=== PATIENT | female | born 1930 | race Caucasian/White ===

== ENCOUNTER → 2016-08-22 | Outpatient (CLI) | payer OTHER, MEDICAID ==
--- NOTE | 2016-08-22 16:49 | DX ---
Knee 4 or More Views Right History: RIGHT KNEE- AP, LATERAL, OBLIQUE. Comparison exam: May 09, 2016. Findings: Postsurgical changes involve the distal right femur and right knee, with lateral sideplate fixation of a transverse distal right femoral diaphyseal fracture and prior right total knee arthropl asty. A persistent transverse nondisplaced fracture line involves the distal right femoral diaphysis, with progressive new bone deposition at the site of fracture with compared to previous study. Howeve r, the fracture line persists. The knee arthroplasty appears intact. Impression: Status post ORIF transverse distal right femoral diaphyseal fracture. Progressive new art ne deposition at the fracture, although the fracture line persists.
== END ==
LOC: FIMAGING 11:01
PROVIDERS: ATTEND Family Medicine
DX: S72.491D Other fracture of lower end of right femur, subsequent encounter for closed fracture with routine healing (principal); Z96.651 Presence of right artificial knee joint

== ENCOUNTER 2017-08-03 12:38 | Inpatient (IN) | payer OTHER, MEDICAID ==
[2017-08-03 13:08] LABS: PLATELET COUNT 335 10^3/uL (150-400)
--- NOTE | 2017-08-03 13:08 | EDPHY ---
H & P Time Seen by Provider: 08/03/17 12:52 HPI/ROS: Chief complaint. Nausea vomiting HPI. 87-year-old female here by EMS with 3 day history of nausea and vomiting. She had been having left lower quadrant abdominal pain but she says she does not have it now. Nausea and vomiting but no diarrhea. She has been unable to keep fluids down. No chest pain or shortness of breath. Possibly she has had a fever. She lives remotely in [place]. Now generally weak and difficulty walking ROS Constitutional. no fever/chills; generalized weakness Eyes. no problems with vision ENT. no sore throat, no nasal drainage Cardiovascular. no chest pain Respiratory. no shortness of breath, no cough Abdominal. Resolved left lower quadrant abdominal pain with nausea and vomiting but no diarrhea . no problems urinating MS. no calf pain/swelling, no neck/back pain, no joint pain Skin. no rash Lymph. no swollen glands Neuro. no headache, no dizziness; difficulty walking secondary to weakness Past Medical/Surgical History: CVA, hypertension, spinal stenosis, hypothyroid, migraines, congestive heart failure, diverticulitis, GERD, depression/anxiety Social History: General Appearance: Alert well-developed female mild distress vital signs are noted Eyes: Pupils equal and round no pallor or injection. ENT, Mouth: Mucous membranes are dry. Respiratory: There are no retractions, lungs are clear to auscultation. Cardiovascular: Regular rate and rhythm. Gastrointestinal: Abdomen is soft and no longer tender in the left lower quadrant. Normal bowel sounds. No masses. Neurological: Awake and alert, sensory and motor exams grossly normal. Skin: Warm and dry, no rashes. Musculoskeletal: Neck is supple nontender. Extremities symmetrical, full range of motion. Psychiatric: Patient is oriented X 3, there is no agitation. Smoking Status: Never smoked Constitutional: Initial Vital Signs Temperature (C) 36.6 C 08/03/17 12:38 Heart Rate 95 08/03/17 12:38 Respiratory Rate 18 08/03/17 12:38 Blood Pressure 126/87 H 08/03/17 12:38 O2 Sat (%) 95 08/03/17 12:38 O2 Delivery Mode Room Air Allergies/Adverse Reactions: No Known Allergies Allergy (Unverified 02/21/16 17:35) Home Medications: Medication Instructions Recorded Citalopram [CeleXA 20 MG] 20 mg PO DAILY 02/21/16 Clopidogrel Bisulfate [Plavix (*)] 75 mg PO DAILY 02/21/16 Levothyroxine [Synthroid 125 mcg 125 mcg PO DAILY06 02/21/16 (*)] Pantoprazole Sodium [Protonix 40mg 40 mg PO DAILY 02/21/16 (*)] Valsartan [Diovan (*)] 80 mg PO DAILY 02/21/16 clonIDINE [Catapres (*)] 0.2 mg PO BID 02/21/16 Acetaminophen [Tylenol ES 500 mg 1,000 mg PO TID #0 tab 02/26/16 (*)] Ondansetron Odt [Zofran Odt 4 mg 4 mg PO Q4 PRN #0 tab 02/26/16 (*)] oxyCODONE IR [Oxycodone Ir (*)] 2.5 - 5 mg PO Q4HRS PRN #40 tab 02/26/16 traMADol [Ultram 50 mg (*)] 50 mg PO Q6HRS PRN #0 tab 02/26/16 Medical Decision Making - Diagnostics EKG Interpretation: EKG interpreted by me shows normal sinus rhythm with left axis deviation QRS otherwise normal there is no significant ST elevation or depression. No arrhythmia. Rate is 79 Imaging Results: Imaging Impressions Abdomen CT 08/03/17 13:19 Impression: 1. No acute findings in the abdomen or pelvis. 2. Diverticulosis without evidence of diverticulitis. 3. Severe multilevel degenerative change in the spine with multilevel moderate to severe spinal canal narrowing. 4. Left adnexal cyst, grossly stable in size since the comparison pelvic ultrasound, suboptimally characterized by CT. 5. Subacute minimally displaced posterolateral left 10th rib fracture with subacute nondisplaced right 9th and 10th rib fractures. 6.. Additional findings as above. Findings discussed with Dr. Wilmar Cooper on 08/03/2017 at 14:42. Chest X-Ray 08/03/17 13:20 Impression: Poor inspiration. No pneumonia. One-view chest x-ray shows no pneumonia CT abdomen and pelvis with IV contrast shows diverticulosis but not itis. No other acute findings Procedures: IV normal saline with initial target of 1 L. Zofran for nausea ED Course/Re-evaluation: We have had patient child care associate evaluating the patient. Her is also here. There is no family in state and the power of campaign consultant is out of state as well. Patient does have a urinary tract infection. She has been vomiting in and is somewhat dehydrated. She had had left lower quadrant abdominal pain and I considered diverticulitis but we do not find any acute findings on her abdominal CT I consulted discussed case with Dr. Mohamud, hospitalist, who agrees to the admission Patient is given IV Rocephin in the emergency department Differential Diagnosis: Failure to thrive. Dehydration. Lack of family support. Patient has UTI. - Data Points Laboratory Results: Laboratory Results 08/03/17 12:55 08/03/17 12:55 08/03/17 08/03/17 08/03/17 14:33 13:35 12:55 WBC RBC Hgb Hct MCV MCH MCHC RDW Plt Count MPV Neut % (Auto) Lymph % (Auto) Grayson % (Auto) Eos % (Auto) Baso % (Auto) Nucleat RBC Rel Count Absolute Neuts (auto) Absolute Lymphs (auto) Absolute Monos (auto) Absolute Eos (auto) Absolute Basos (auto) Absolute Nucleated RBC Immature Gran % Immature Gran # VBG Lactic Acid 1.8 mmol/L mmol/L (0.7-2.1) Sodium Potassium Chloride Carbon Dioxide Anion Gap BUN Creatinine Estimated GFR Glucose Calcium Troponin I 0.023 ng/mL ng/mL (0.000-0.034) Urine Color YELLOW Urine Appearance MODERATELY TURBID Urine pH 6.0 (5.0-7.5) Ur Specific Buckley 1.017 (1.002-1.030) Urine Protein 2+ H (NEGATIVE) Urine Ketones NEGATIVE (NEGATIVE) Urine Blood 2+ H (NEGATIVE) Urine Nitrate NEGATIVE (NEGATIVE) Urine Bilirubin NEGATIVE (NEGATIVE) Urine Urobilinogen NEGATIVE EU EU (0.2-1.0) Ur Leukocyte Esterase 3+ H (NEGATIVE) Urine RBC 5-10 /hpf H /hpf (0-3) Urine WBC 50-182 /hpf H /hpf (0-3) Ur Epithelial Cells TRACE /lpf /lpf (NONE-1+) Urine Bacteria 4+ /hpf H /hpf (NONE SEEN) Hyaline Casts 5-15 /lpf /lpf (0-1) Urine Mucus 2+ /lpf H /lpf (NONE-1+) Urine Glucose NEGATIVE (NEGATIVE) 08/03/17 08/03/17 12:55 12:55 WBC 8.18 10^3/uL 10^3/uL (3.80-9.50) RBC 5.10 10^6/uL 10^6/uL (4.18-5.33) Hgb 14.7 g/dL g/dL (12.6-16.3) Hct 42.7 % % (38.0-47.0) MCV 83.7 fL fL (81.5-99.8) MCH 28.8 pg pg (27.9-34.1) MCHC 34.4 g/dL g/dL (32.4-36.7) RDW 14.7 % % (11.5-15.2) Plt Count 335 10^3/uL 10^3/uL (150-400) MPV 9.2 fL fL (8.7-11.7) Neut % (Auto) 72.2 % % (39.3-74.2) Lymph % (Auto) 16.9 % % (15.0-45.0) Grayson % (Auto) 9.3 % % (4.5-13.0) Eos % (Auto) 0.5 % L % (0.6-7.6) Baso % (Auto) 0.6 % % (0.3-1.7) Nucleat RBC Rel Count 0.0 % % (0.0-0.2) Absolute Neuts (auto) 5.91 10^3/uL 10^3/uL (1.70-6.50) Absolute Lymphs (auto) 1.38 10^3/uL 10^3/uL (1.00-3.00) Absolute Monos (auto) 0.76 10^3/uL 10^3/uL (0.30-0.80) Absolute Eos (auto) 0.04 10^3/uL 10^3/uL (0.03-0.40) Absolute Basos (auto) 0.05 10^3/uL 10^3/uL (0.02-0.10) Absolute Nucleated RBC 0.00 10^3/uL 10^3/uL (0-0.01) Immature Gran % 0.5 % % (0.0-1.1) Immature Gran # 0.04 10^3/uL 10^3/uL (0.00-0.10) VBG Lactic Acid Sodium 133 mEq/L L mEq/L (135-145) Potassium 4.4 mEq/L mEq/L (3.5-5.2) Chloride 100 mEq/L mEq/L (97-110) Carbon Dioxide 18 mEq/l L mEq/l (22-31) Anion Gap 15 mEq/L mEq/L (8-16) BUN 20 mg/dL mg/dL (7-23) Creatinine 0.8 mg/dL mg/dL (0.6-1.0) Estimated GFR > 60 Glucose 118 mg/dL H mg/dL (70-100) Calcium 10.1 mg/dL mg/dL (8.5-10.4) Troponin I Urine Color Urine Appearance Urine pH Ur Specific Buckley Urine Protein Urine Ketones Urine Blood Urine Nitrate Urine Bilirubin Urine Urobilinogen Ur Leukocyte Esterase Urine RBC Urine WBC Ur Epithelial Cells Urine Bacteria Hyaline Casts Urine Mucus Urine Glucose Medications Given: Discontinued Medications Sodium Chloride (Ns) 1,000 mls @ 0 mls/hr IV EDNOW ONE; Wide Open PRN Reason: Protocol Stop: 08/03/17 13:19 Last Admin: 08/03/17 14:05 Dose: 1,000 mls Ondansetron HCl (Zofran) 4 mg IVP EDNOW ONE Stop: 08/03/17 13:19 Last Admin: 08/03/17 14:06 Dose: 4 mg Departure - Departure Disposition: [facility] Inpatient Acute Clinical Impression: Urinary tract infection Qualifiers: Urinary tract infection type: site unspecified Hematuria presence: without hematuria Qualified Code(s): N39.0 - Urinary tract infection, site not specified Condition: Fair Referrals: Patient,NotPresent [Primary Care Provider] - As per Instructions
[2017-08-03] MEDS ORDERED: NS 1,000 ML IV ONE (13:18)
[2017-08-03] MEDS ORDERED: ONDANSETRON 4 MG/2 ML VIAL IVP ONE (13:18)
[2017-08-03] MEDS ORDERED: IOPAMIDOL (ISOVUE-300) 100 ML BTL ONE (13:31)
--- NOTE | 2017-08-03 13:40 | CPEKG ---
Heart Rate: 79 RR Interval: 759 P-R Interval: 204 QRSD Interval: 74 QT Interval: 400 QTC Interval: 459 P Cable: 16 QRS Cable: -8 T Wave Cable: -8 EKG Severity - BORDERLINE ECG - EKG Impression: SINUS RHYTHM EKG Impression: ATRIAL PREMATURE COMPLEX EKG Impression: BORDERLINE R WAVE PROGRESSION, ANTERIOR LEADS EKG Impression: BORDERLINE T ABNORMALITIES, INFERIOR LEADS Electronically Signed By: Wilmar Cooper 03-Aug-2017 15:19:04
[2017-08-03] MEDS ORDERED: cefTRIAXone 1 GM in STERILE WATER INJ 10 ML IV ONE (15:12)
--- NOTE | 2017-08-03 16:20 | ASMTLACE ---
SOY Acuity / Level of Answers: Yes Care: Did the patient have an inpatient admission? # of Emergency department Answers: 1-2 visits in the last 6 months Score: 4 Date Signed: 08/03/2017 04:20 PM Electronically Signed By:Tania Metz RN
--- NOTE | 2017-08-03 16:37 | ASMTCMCOM ---
CM Note CM Note Notes: Patient presents to the ER via EMS with c/o N/V. Her presents to the ER as well at this time and they will both be admitted. Patient and her live in [place] and although they are both followed by [facility], neither have local family support. I have spoken with the patient's daughter Renate who live is [place]. Renate tells me she is going to make arrangements to get out here as soon as possible. She also informs me that the patient and her have been "considering" getting into a more supportive environment, but at this point have not followed through with this. The patient's dog daycare provider at [facility] is Kianna Cox . Gricel Perez is patient's dog daycare provider at [facility] . I have left her a message regarding patient's admission CM to follow with discharge planning and care coordination Date Signed: 08/03/2017 04:36 PM Electronically Signed By:Tania Metz RN
[2017-08-03] MEDS ORDERED: ONDANSETRON 4 MG/2 ML VIAL IVP PRN (19:01)
[2017-08-03] MEDS ORDERED: ACETAMINOPHEN 325 MG TAB PO PRN (19:01)
[2017-08-03] MEDS ORDERED: ONDANSETRON DISINTEGRATING 4 MG TAB PO PRN (19:01)
[2017-08-03] MEDS ORDERED: ALBUTEROL 60 PUFFS/8 GM MDI IH PRN (19:03)
[2017-08-03] MEDS ORDERED: NS 1,000 ML IV SCH (19:15)
--- NOTE | 2017-08-03 20:41 | GHP ---
[f rep st] HISTORY AND PHYSICAL DATE OF ADMISSION: 08/03/2017 HISTORY OF PRESENT ILLNESS: The patient is an 87-year-old female, with a history of hypertension and reactive airway disease, who along with her called 911 today. She complained of left lower quadrant pain. She has had some vomiting. She has had no diarrhea. It is uncertain when her last b owel movement was. She denies chest pain, shortness of breath, fever, chills, urgency, frequency, dy suria. She does not have a history of chest pain. When I see the patient, she is wondering why she is here in the hospital. There are reports that when she and her were found by EMS, they were in bed together, covered in urine and perhaps stool. They are clean when I see them. The patient is alert and conversant, b ut I am not convinced she has a complete understanding of things that are going. She does acknowledg e high blood pressure that she takes medicines for but really cannot say much thereafter. I admitted her to the hospital earlier this evening and he made it fairly clear that he thoug ht they were unable to take care of themselves in their remote home in the town of [place] [facility]. REVIEW OF SYSTEMS: A complete 10-point review of systems was conducted and negative except as noted in the HPI. PAST MEDICAL HISTORY: 1. Hypertension. 2. Reactive airway disease. 3. TIA. 4. History of diverticulitis. 5. Hypothyroidism. 6. Fall, she was admitted here in February 2016 with a fall and a periprosthetic fracture. 7. She has had a knee replacement. ALLERGIES: No known drug allergies. HOME MEDICATIONS: 1. Albuterol. 2. Aspirin. 3. Citalopram. 4. Clonidine. 5. Clopidogrel. 6. Diclofenac gel. 7. Levothyroxine. 8. Mirtazapine. 9. Oxybutynin. 10. Pantoprazole. 11. Tamsulosin. 12. Tramadol. 13. Triamcinolone cream. 14. Valsartan. SOCIAL HISTORY: Lives in [place] with her . No tobacco or alcohol. FAMILY HISTORY: Parents are . PHYSICAL EXAMINATION: VITAL SIGNS: Temperature 36.6, blood pressure 126/87, pulse 95, breathing 18 times a minute, 95% on room air. GENERAL: No acute distress. Conversant. HEENT: Landy mistry. Oropharynx clear. Mucous membranes moist. NECK: Supple, without lymphadenopathy or JVD. LUNGS : Clear to auscultation bilaterally. HEART: S1, S2. ABDOMEN: Soft, nontender, nondistended. The re is no left lower quadrant tenderness. No rebound or guarding. There is no mass. LOWER EXTREMITI ES: No edema. Calves are nontender. SKIN: Without rash. NEUROLOGIC: Nonfocal. LABORATORY DATA: White count 8.2, hematocrit 42.7, platelets 335,000. Venous lactate is 1.8. Sodiu m 133, potassium 4.4, chloride 100, bicarb 18, BUN 20, creatinine 0.8, glucose 118. Troponin 0.23. She has history of undetectable troponins in the past, although it has been 5 years. UA shows 5-10 r ed cells, 50-182 white cells with bacteria. Chest x-ray, interpreted by me, shows a lordotic shot bu t otherwise no pneumonia. Abdominal CT shows no diverticulitis. No comment on constipation. There is also degenerative change in the spine, stable adnexal cyst, subacute minimally displaced posterola teral left 10th rib fracture. She has an EKG interpreted by me, that shows sinus at 79 with normal a xis and intervals. There is a T-wave inversion in lead 3 which is unchanged from prior. Otherwise, there are no ST or T-wave changes. I have discussed the case with Dr. Wilmar Cooper. ASSESSMENT/PLAN: An 87-year-old female with urinary tract infection and likely failure to thrive. 1. Urinary tract infection. She has pyuria. She has noticed symptoms, uncertain as to her ability to recall. She received ceftriaxone in the emergency department. Urine cultures have been sent. Wi ll follow. Will continue ceftriaxone. 2. Indeterminate troponin. She has an unchanged EKG. Denies chest symptoms. I will follow her on telemetry and repeat an EKG. 3. Failure to thrive. The patient has an old healed rib fracture indicative of likely prior fall an d it sounds like there is a situation of potentially unsafe living in this couple in their ninth dec[place] Social Work has been consulted. 4. Hypertension. Continue her medications. 5. Modestly elevated creatinine. She has greater than her baseline creatinine. Will hydrate her an d follow. 6. Hyponatremia. It is mild and essentially at her baseline. Will follow. 7. Low bicarb. This may be ketosis from starvation. Will follow. I do not suspect a serious metab olic acidosis cause. CODE: Full. DISPOSITION: Inpatient. /[id number]/MODL
[2017-08-03] MEDS: TAMSULOSIN HCL 0.4 MG CAP PO SCH (21:52)
[2017-08-03] MEDS: MIRTAZAPINE 15 MG TAB PO SCH (21:52)
[2017-08-03] MEDS: OXYBUTYNIN CHLORIDE 5 MG TAB PO SCH (21:55)
[2017-08-03] MEDS: DICLOFENAC SODIUM 1% 100 GM GEL TP SCH (22:26)
[2017-08-04] MEDS: LEVOTHYROXINE 125 MCG TAB PO SCH ×2 (06:26→06:31)
[2017-08-04] MEDS: cefTRIAXone 1 GM in STERILE WATER INJ 10 ML IV SCH (08:20)
[2017-08-04] MEDS: PANTOPRAZOLE SODIUM 40 MG TAB PO SCH (08:20)
[2017-08-04] MEDS: ASPIRIN 81 MG CHEWABLE TAB PO SCH (08:20)
[2017-08-04] MEDS: VALSARTAN 80 MG TAB PO SCH (08:20)
[2017-08-04] MEDS: OXYBUTYNIN CHLORIDE 5 MG TAB PO SCH (08:20)
[2017-08-04] MEDS: CLOPIDOGREL BISULFATE 75 MG TAB PO SCH (08:20)
[2017-08-04] MEDS: ENOXAPARIN 40 MG/0.4 ML SYR SC SCH ×2 (08:20→10:31)
[2017-08-04] MEDS: CITALOPRAM 20 MG TAB PO SCH (08:20)
[2017-08-04] MEDS: DICLOFENAC SODIUM 1% 100 GM GEL TP SCH ×2 (08:21→20:21)
[2017-08-04] MEDS: TRIAMCINOLONE 0.1% 15 GM CRTUBE TP SCH (08:21)
--- NOTE | 2017-08-04 10:12 | PDMN ---
Medical Necessity Medical necessity: est los>2mn for UTI, indeterminate troponin, elevated creatinine, hyponatremia, low bicarb, and FTT, reportedly covered in urine and stool at home; admit for IV abx, tele, IVF, monitor labs, PT/OT; comorbid advanced age, htn, RAD, hx TIA, and diverticulitis; per order and H&P 08/03/17
--- NOTE | 2017-08-04 12:07 | HOSPPROG ---
Hospitalist Progress Note Assessment/Plan: UTI - cont ceftriaxone, UCx with GNR's, await final report and sensitivities. No BCx's on admission, defer at this point as she is stable, had normal lactate. Acute encephalopathy - likely due to above. Cog eval planned. AHRF - 3 LPM. CXR neg for PNA, poor inspiratory effort. Suspect atelectasis, encephalopathy playing a role. No tachycardia or pleuritic symptoms. Hyponatremia - resolved with IVF's Metabolic acidosis - likely starvation ketosis, resolved with IVF's Failure to thrive - living in [place] with , who is also hospitalized. May require placement. CM involved. DVT PPLX - high risk, Lovenox DNR Dispo - cont inpt, needs PT/OT when able to cooperate. Subjective: Pt is comfortable at rest, yells out with any attempt to move her. She awakens to verbal stimuli, but does not interact or answer questions. Objective: Vital Signs Temp Pulse Resp BP Pulse Ox 36.6 C 76 20 127/48 H 98 08/04/17 08:00 08/04/17 08:00 08/04/17 08:00 08/04/17 08:00 08/04/17 08:00 Laboratory Results 08/04/17 05:03 08/03/17 08/04/17 08/05/17 05:59 05:59 05:59 Intake Total 1000 Balance 1000 - Physical Exam Constitutional: no apparent distress Eyes: PERRL Ears, Nose, Mouth, Throat: moist mucous membranes Cardiovascular: regular rate and rhythym Respiratory: no respiratory distress Gastrointestinal: normoactive bowel sounds, soft, non-tender abdomen Skin: warm Musculoskeletal: generalized weakness Psychiatric: encephalopathic ICD10 Worksheet Patient Problems: Problems Problem Status Onset Urinary tract infection Acute Supracondylar fracture of femur Acute Transient ischemic attack Acute
[2017-08-04] MEDS: traMADol 50 MG TAB PO PRN ×2 (13:20→20:19)
--- NOTE | 2017-08-04 16:07 | ASMTCMCOM ---
CM Note CM Note Notes: Pt is in the hospital after her and her , who is also a pt, called 911. She and her live in [place] in a home alone, she is wc/bed bound at baseline and has some dementia. She and her do have case workers and a dtr that lives out of state who are trying to assist pt and to potentially get 24hr care or into [place]. Please read the ED CM note. Pt's will go to [facility], pt should go as well but CM was told they should not be in the same room. PT recommends SNF, OT/LEAD PRESSMAN is pending DC Plan: SNF Date Signed: 08/04/2017 04:07 PM Electronically Signed By:Hodan Reinoso RN
[2017-08-04] MEDS: MIRTAZAPINE 15 MG TAB PO SCH ×2 (20:19→22:02)
[2017-08-04] MEDS: TAMSULOSIN HCL 0.4 MG CAP PO SCH ×2 (20:19→22:02)
[2017-08-05] MEDS: LEVOTHYROXINE 125 MCG TAB PO SCH ×2 (04:41→09:10)
[2017-08-05] MEDS: cefTRIAXone 1 GM in STERILE WATER INJ 10 ML IV SCH (08:51)
[2017-08-05] MEDS: ENOXAPARIN 40 MG/0.4 ML SYR SC SCH (08:53)
[2017-08-05] MEDS: VALSARTAN 80 MG TAB PO SCH (09:02)
[2017-08-05] MEDS: CITALOPRAM 20 MG TAB PO SCH (09:07)
[2017-08-05] MEDS: ASPIRIN 81 MG CHEWABLE TAB PO SCH (09:07)
[2017-08-05] MEDS: PANTOPRAZOLE SODIUM 40 MG TAB PO SCH (09:07)
[2017-08-05] MEDS: CLOPIDOGREL BISULFATE 75 MG TAB PO SCH (09:08)
--- NOTE | 2017-08-05 10:39 | HOSPPROG ---
Hospitalist Progress Note Assessment/Plan: UTI - Cooney-sensitive e coli on UCx. No BCx's on admission, defer at this point as she is stable, had normal lactate. Acute encephalopathy - likely due to above. Cont cognitive assessments. May improve with hydration, tx of infection. AHRF - 3 LPM. CXR neg for PNA, poor inspiratory effort. Suspect atelectasis, encephalopathy playing a role. No tachycardia or pleuritic symptoms. Hyponatremia - resolved with IVF's Metabolic acidosis - likely starvation ketosis, resolved with IVF's Failure to thrive - living in [place] with , who is also hospitalized. May require placement. CM involved. DVT PPLX - high risk, Lovenox DNR Dispo - cont inpt, needs PT/OT when able to cooperate. Anticipate will need SNF. Subjective: Pt is somnolent, sleepy, but awakens to verbal stimuli, opens eyes and answers questions. Denies pain. No fevers. Taking some po. Objective: Vital Signs Temp Pulse Resp BP Pulse Ox 36.3 C 64 16 130/51 H 98 08/05/17 07:51 08/05/17 07:51 08/05/17 07:51 08/05/17 07:51 08/05/17 07:51 Laboratory Results 08/04/17 05:03 08/04/17 08/05/17 08/06/17 05:59 05:59 05:59 Intake Total 1000 654 Output Total 550 Balance 1000 104 - Physical Exam Constitutional: no apparent distress Eyes: PERRL Ears, Nose, Mouth, Throat: moist mucous membranes Cardiovascular: regular rate and rhythym Respiratory: no respiratory distress, clear to auscultation Gastrointestinal: normoactive bowel sounds, soft, non-tender abdomen Skin: warm Musculoskeletal: full muscle strength Neurologic: AAOx3 Psychiatric: interacting appropriately ICD10 Worksheet Patient Problems: Problems Problem Status Onset Urinary tract infection Acute Supracondylar fracture of femur Acute Transient ischemic attack Acute
[2017-08-05] MEDS: TRIAMCINOLONE 0.1% 15 GM CRTUBE TP SCH (11:16)
[2017-08-05] MEDS: DICLOFENAC SODIUM 1% 100 GM GEL TP SCH ×2 (11:16→23:32)
[2017-08-05] MEDS ORDERED: NS 500 ML IV ONE (13:56)
[2017-08-05] MEDS: NS 1,000 ML IV SCH (17:46)
[2017-08-05] MEDS ORDERED: HALOPERIDOL LACT 5 MG/ML INJ IM ONE ×2 (19:48→21:30)
[2017-08-05] MEDS ORDERED: HALOPERIDOL LACT 5 MG/ML INJ ONE (21:20)
[2017-08-05] MEDS: MIRTAZAPINE 15 MG TAB PO SCH (23:25)
[2017-08-05] MEDS: TAMSULOSIN HCL 0.4 MG CAP PO SCH (23:25)
[2017-08-06] MEDS: LEVOTHYROXINE 125 MCG TAB PO SCH ×2 (04:49→05:19)
[2017-08-06] MEDS ORDERED: HALOPERIDOL 0.5 MG TAB PO PRN (09:30)
[2017-08-06] MEDS ORDERED: NS 500 ML IV ONE (10:13)
--- NOTE | 2017-08-06 10:15 | HOSPPROG ---
Hospitalist Progress Note Assessment/Plan: UTI - E coli on UCx, sensitive to cephalosporin. No BCx's on admission, defer at this point as she is stable, had normal lactate. -change to oral keflex Acute encephalopathy with agitation overnight - Query underlying dementia. More alert today, though required IM Haldol overnight for agitation. -prn zyprexa for agitation -cog eval Urinary retention - nl Creatinine, straight cath'd for 800 cc's overnight. -d/c TCA, which could be contributory -bladder scan / prn straight cath AHRF - Resolved, was likely atelectatic, now on room air. Hyponatremia - resolved with IVF's Metabolic acidosis - likely starvation ketosis, resolved with IVF's Azotemia - likely pre-renal, still a bit dry -NS bolus today, cont gentle IVF's Failure to thrive - living in [place] with , who is also hospitalized. Needs SNF DVT PPLX - high risk, Lovenox DNR Dispo - cont inpt, PT/OT. Plan to d/c to SNF where is. Subjective: Pt more awake, alert, up in chair, eating. Denies pain. Speech is a bit garbled, she is confused. No fevers. +urinary retention overnight. Objective: Vital Signs Temp Pulse Resp BP Pulse Ox 37.1 C 91 18 168/77 H 96 08/06/17 03:25 08/06/17 03:25 08/06/17 03:25 08/06/17 03:25 08/06/17 03:25 Laboratory Results 08/06/17 05:15 08/05/17 08/06/17 08/07/17 05:59 05:59 05:59 Intake Total 654 1260 Output Total 550 800 Balance 104 460 - Physical Exam Constitutional: no apparent distress Eyes: PERRL Ears, Nose, Mouth, Throat: moist mucous membranes Cardiovascular: regular rate and rhythym Respiratory: no respiratory distress, clear to auscultation Gastrointestinal: normoactive bowel sounds, soft, non-tender abdomen Skin: warm Musculoskeletal: full muscle strength Neurologic: AAOx3 Psychiatric: agitated, poor memory ICD10 Worksheet Patient Problems: Problems Problem Status Onset Urinary tract infection Acute Supracondylar fracture of femur Acute Transient ischemic attack Acute
[2017-08-06] MEDS: CLOPIDOGREL BISULFATE 75 MG TAB PO SCH (10:18)
[2017-08-06] MEDS: ASPIRIN 81 MG CHEWABLE TAB PO SCH (10:18)
[2017-08-06] MEDS: CITALOPRAM 20 MG TAB PO SCH (10:18)
[2017-08-06] MEDS: CEPHALEXIN 500 MG CAP PO SCH ×2 (10:18→16:58)
[2017-08-06] MEDS: PANTOPRAZOLE SODIUM 40 MG TAB PO SCH (10:18)
[2017-08-06] MEDS: VALSARTAN 80 MG TAB PO SCH (10:18)
[2017-08-06] MEDS: OLANZapine DISINTEGR 5 MG TAB PO PRN ×2 (10:32→11:40)
[2017-08-06] MEDS: ENOXAPARIN 40 MG/0.4 ML SYR SC SCH (11:00)
[2017-08-06] MEDS: cefTRIAXone 1 GM in STERILE WATER INJ 10 ML IV SCH (11:01)
[2017-08-06] MEDS: DICLOFENAC SODIUM 1% 100 GM GEL TP SCH ×2 (12:00→20:37)
[2017-08-06] MEDS ORDERED: cefTRIAXone 1 GM in STERILE WATER INJ 10 ML IV SCH (17:00)
[2017-08-06] MEDS: TRIAMCINOLONE 0.1% 15 GM CRTUBE TP SCH (18:28)
[2017-08-06] MEDS: TAMSULOSIN HCL 0.4 MG CAP PO SCH (19:55)
[2017-08-07] MEDS: LEVOTHYROXINE 125 MCG TAB PO SCH (04:54)
[2017-08-07] MEDS: NS 1,000 ML IV SCH (07:58)
[2017-08-07 08:06] VITALS: TEMP 97.9
[2017-08-07] MEDS ORDERED: CEPHALEXIN 500 MG CAP PO SCH (09:00)
--- NOTE | 2017-08-07 09:06 | PDIAF ---
- Diagnosis Diagnosis: UTI, dementia Code Status: Do Not Resuscitate - Medication Management Discharge Medications: Medications to Continue on Transfer Citalopram [CeleXA 20 MG] 20 mg PO DAILY 02/21/16 [Last Taken Unknown] Clopidogrel Bisulfate [Plavix (*)] 75 mg PO DAILY 02/21/16 [Last Taken Unknown] Levothyroxine [Synthroid 125 mcg (*)] 125 mcg PO DAILY06 02/21/16 [Last Taken Unknown] Pantoprazole Sodium [Protonix 40mg (*)] 40 mg PO DAILY 02/21/16 [Last Taken Unknown] Valsartan [Diovan (*)] 80 mg PO DAILY 02/21/16 [Last Taken Unknown] clonIDINE [Catapres (*)] 0.2 mg PO BID 02/21/16 [Last Taken Unknown] Albuterol [Proventil Inhaler HFA (*)] 2 puffs IH Q4 PRN 08/03/17 [Last Taken Unknown] Aspirin [Aspirin 81mg (*)] 81 mg PO DAILY 08/03/17 [Last Taken Unknown] Diclofenac Sodium 1% [Voltaren Gel (*)] 1 hemal TP BID 08/03/17 [Last Taken Unknown] Tamsulosin HCl [Flomax 0.4 MG (*)] 0.4 mg PO HS 08/03/17 [Last Taken Unknown] Triamcinolone 0.1% [Triamcinolone 0.1% Cream (*)] 1 hemal TP DAILY 08/03/17 [Last Taken Unknown] Acetaminophen [Tylenol 325mg (*)] 650 mg PO Q4HRS PRN tab 08/07/17 [Last Taken Unknown] Cephalexin [Keflex (*)] 500 mg PO BID #8 cap 08/07/17 [Last Taken Unknown] OLANZapine DISINTEGR [ZyPREXA ZYDIS (*)] 2.5 mg PO HS PRN #30 tab 08/07/17 [ Last Taken Unknown] Discharge Medications: Refer to the Discharge Home Medication list for PRN reason. PICC Care - Routine: N/A - Orders Services needed: Registered Nurse, Certified Threading Machine Feeder Automatic, Master Hog Stomach Preparer , Physical Therapy, Occupational Therapy, Speech Language Pathologist Isolation Type: None Diet Recommendation: sodium restricted Diet Texture: Dysphagia 3 - Advanced - Moist, Bite-Size, Ramos Thick Liquids, Meds Whole in Puree Oates: Yes Additional: Oates placed for ongoing retention, stopped tricyclic. May remove oates in 2-3 days for voiding trial. F/U with Urology if ongoing retention. - Follow Up Care Current Providers and Referrals: Patient,NotPresent [Unknown] - As per Instructions
[2017-08-07] MEDS: CITALOPRAM 20 MG TAB PO SCH (09:29)
[2017-08-07] MEDS: ASPIRIN 81 MG CHEWABLE TAB PO SCH (09:29)
[2017-08-07] MEDS: CLOPIDOGREL BISULFATE 75 MG TAB PO SCH (09:29)
[2017-08-07] MEDS: PANTOPRAZOLE SODIUM 40 MG TAB PO SCH (09:30)
[2017-08-07] MEDS: VALSARTAN 80 MG TAB PO SCH (09:30)
[2017-08-07] MEDS: DICLOFENAC SODIUM 1% 100 GM GEL TP SCH (09:30)
[2017-08-07] MEDS: ENOXAPARIN 40 MG/0.4 ML SYR SC SCH (09:30)
[2017-08-07] MEDS: TRIAMCINOLONE 0.1% 15 GM CRTUBE TP SCH (09:41)
[2017-08-07 11:07] VITALS: BP 135/68; PULSE 96; RESP 15; O2SAT 98
--- NOTE | 2017-08-07 14:37 | ASDISCHSUM ---
Discharge Information Plan Status:SNF Medically Cleared to Leave:08/06/2017 Discharge Date:08/07/2017 12:49 PM D/C Disposition:Jail Facility ADT D/C Disposition:Jail Facility Projected Discharge Date:08/07/2017 11:00 AM Transportation at D/C:ALS/BLS Discharge Delay Reason: Follow-Up Date:08/07/2017 11:00 AM Discharge Slot: Final Diagnosis:UTI, FTT Placement Information Referral Type:*Residential/SNF Referral ID:[id number] Provider Name:[facility] Address 1:[address] Address 2: City:[place] Selection Factors: State:[place] Patient Contact Information Contact Name:ERIKA Relationship: Address:[address] [place] [address] [facility] [employer] Work Phone: City:[place] Alternate Phone: State/[facility] Code:[place] [address] Email: Financial Information Financial Class: Primary Plan Desc:MEDICARE INPATIENT Primary Plan Number:[id number] Secondary Plan Desc:MEDICA[place] Secondary Plan Number:[id number] Assessment Information LACE LACE Acuity / Level of Answers: Yes Care: Did the patient have an inpatient admission? # of Emergency department Answers: 1-2 visits in the last 6 months Score: 4 Date Signed: 08/03/2017 04:20 PM Electronically Signed By:Tania Metz RN [facility] CM Progress Note CM Note CM Note Notes: Patient presents to the ER via EMS with c/o N/V. Her presents to the ER as well at this time and they will both be admitted. Patient and her live in [place] and although they are both followed by [facility], neither have local family support. I have spoken with the patient's daughter Renate who live is [place]. Renate tells me she is going to make arrangements to get out here as soon as possible. She also informs me that the patient and her have been "considering" getting into a more supportive environment, but at this point have not followed through with this. The patient's managed care director at [facility] is Kianna Cox . Gricel Perez is patient's managed care director at [facility] . I have left her a message regarding patient's admission CM to follow with discharge planning and care coordination Date Signed: 08/03/2017 04:36 PM Electronically Signed By:Tania Metz RN [facility] CM Progress Note CM Note CM Note Notes: Pt is in the hospital after her and her , who is also a pt, called 911. She and her live in [place] in a home alone, she is wc/bed bound at baseline and has some dementia. She and her do have case workers and a dtr that lives out of state who are trying to assist pt and to potentially get 24hr care or into AL. Please read the ED CM note. Pt's will go to [facility], pt should go as well but CM was told they should not be in the same room. 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 Answers: Yes Patient to Obtain Answers: Other Notes: [facility] Medications Transportation Arranged Answers: [facility] will Pick (Date 08/07/2017 01:00 PM & Time) EMTALA Complete Answers: No Case Management Transport Answers: Yes Form Complete Faxed Final Orders Answers: Yes Notes: [facility] Agency/Facility Transfer Answers: Yes Report Printed & Faxed to Receiving Agency Discharge Comments Notes: Pt is being discharged today to [facility]. CM met w/ pt for dispo planning. Pt is agreeable to d/c plans. Pt will be sharing a room w/ her which is also at rehab at [facility]. CM sent d/c orders. CM provided HAYLIE Garcia w/ phone number to give report. CM spoke w/ Gricel (P#: [phone]), HC[employer] worker from [facility] and provided updates. CM completed PCS form and a copy is in pts chart. CM available for changes. Plan: [facility] Date Signed: 08/07/2017 11:46 AM Electronically Signed By:TOMAS Ray Intervention Information Intervention Type:*IM-Signed Date of Service:08/07/2017 11:49 AM Patient Type:Inpatient Staff Member:Jacqui Mcintyre Hours: Discipline: Severity: Comment:
--- NOTE | 2017-08-07 23:41 | GDS ---
[f rep st] DISCHARGE SUMMARY DISCHARGE DIAGNOSES: 1. Urinary tract infection secondary to Escherichia coli. 2. Acute encephalopathy, resolved. 3. Suspected dementia. 4. Urinary retention, discharged with an indwelling Foster. 5. Acute hypoxemic respiratory failure, resolved. 6. Hyponatremia, resolved. 7. Metabolic acidosis, resolved. 8. Failure to thrive. CONSULTANTS: None. HISTORY: For details, please see the History and Physical dated August 03, 2017. In brief, the sunshine ramirez is an 87-year-old female who has been living independently with her in the [facility] and presented to the emergency department when her called 911 due to her com plaining of abdominal pain with vomiting. When EMS arrived, she and her were found in bed to gether covered in urine and feces. It appeared that they were not taking care of themselves. They w ere both admitted to the hospital on the same day. HOSPITAL COURSE: Patient was admitted to med/surg unit. She was found to have a urinary tract infec tion and indeed her urine culture grew E coli which was sensitive to cephalosporins. She was treated with 3 days of IV ceftriaxone and transitioned to oral Keflex. She was initially quite encephalopat hic, though her mentation improved with IV hydration and treatment of her infection. She did not hav e evidence of sepsis on arrival. Her hyponatremia and metabolic acidosis resolved with IV hydration. It is suspected that she has underlying dementia. In addition, she developed urinary retention and required multiple straight caths for postvoid residuals of 400-800 mL. A Foster catheter was placed and this will remain in place as she transferred to [facility] facility. There, they can remove the Foster in 2-3 days for a voiding trial. If she requires Foster replacement, would recommend [facility] followup. In addition, she was started on low-dose Zyprexa for some agitation and she seemed to respond well to this. DISPOSITION: Patient is discharged to [facility] facility in stable condition. FOLLOWUP: Patient is to follow up with her primary care physician in 1-2 weeks. DISCHARGE MEDICATIONS: Please see [facility] for completed outpatient medication list. New medication s on discharge include Keflex 500 mg p.o. twice daily #8 no refills; Zyprexa 2.5 mg p.o. q.h.s. p.r.n . #30 no refills; and Tylenol 650 mg p.o. q.4 hours p.r.n. She will continue all other outpatient me dications as previously prescribed including Protonix 40 mg daily, Synthroid 125 mcg daily, clonidine 0.2 mg p.o. b.i.d., Plavix 75 mg p.o. daily, Celexa 20 mg p.o. daily, valsartan 80 mg p.o. daily, di clofenac gel b.i.d., aspirin 81 mg p.o. daily, Flomax 0.4 mg p.o. q.h.s., albuterol inhaler q.4 hours p.r.n., and triamcinolone cream. /[id number]/CARAL
== END 2017-08-07 12:49 | DRG 689 ==
LOC: EDUNIT# → EDBD → F3E 17:24
PROVIDERS: ADMIT Internal Medicine; ATTEND Internal Medicine
DX: N39.0 Urinary tract infection, site not specified (principal); G93.49 Other encephalopathy; J96.01 Acute respiratory failure with hypoxia; E87.1 Hypo-osmolality and hyponatremia; E87.2 Acidosis; F03.90 Unspecified dementia, unspecified severity, without behavioral disturbance, psychotic disturbance, mood disturbance, and anxiety; B96.20 Unspecified Escherichia coli [E. coli] as the cause of diseases classified elsewhere; R33.9 Retention of urine, unspecified; R62.7 Adult failure to thrive; I10 Essential (primary) hypertension; E03.9 Hypothyroidism, unspecified; Z66 Do not resuscitate; Z86.73 Personal history of transient ischemic attack (TIA), and cerebral infarction without residual deficits
CPT/HCPCS: 92526-GN; 92610-GN; 96374; 97162-GP; 97166-GO; 97530-GP; 97532-GO; G8978-GP-CM; G8979-GP-CK; G8987-GO-CM; G8988-GO-CK; G8996-GN-CI; G8996-GN-CJ; G8997-GN-CI; G8998-GN-CI; J0696; J1630; J1650; J2405; Q9967